=== PATIENT | female | born 1935 | race Caucasian/White ===

== ENCOUNTER 2023-08-03 15:49 | Inpatient (IN) ==
[2023-08-03] MEDS ORDERED: NS 0.9% 500 ml BAG 500 ML IV ONE (15:56)
[2023-08-03 17:55] LABS: ABS Eosinophils 0.1 10^3/uL (0.0-0.5); ABS Lymphocytes 1.5 10^3/uL (1.0-4.8); ABS Monocytes 0.8 10^3/uL (0.0-0.9); ABS Neutrophils 11.9 10^3/uL (1.5-7.6); ABS Nucleated RBC 0.01 10^3/ul; Eosinophil % 0.8 %; Hematocrit 39.3 % (35-45); Hemoglobin 13.2 g/dL (11.5-14.3); Lymphocyte % 10.4 %; Mean Corpuscular Hemoglobin 30.4 pg (27-33); Mean Corpuscular Hgb Conc 33.5 g/dL (31-36); Mean Corpuscular Volume 90.9 fL (80-97); Mean Platelet Volume 8.1 fL (7.5-11.2); Platelet Count 245 10^3/uL (150-450); Red Blood Count 4.33 10^6/uL (3.63-4.92); Red Cell Distribution Width 14.1 % (12-17); White Blood Count 14.4 10^3/uL (3.8-11.8)
[2023-08-03 18:02] LABS: High Sens Troponin Baseline 28 pg/mL (<15)
[2023-08-03 18:13] LABS: Albumin 4.2 g/dL (3.2-5.2); C Reactive Protein 101.96 mg/L (<8.01); Calcium 9.5 mg/dL (8.6-10.3); Creatinine, Serum 0.96 mg/dL (0.51-0.95); Globulin 4.3 g/dL (2-4); Phosphorus 2.6 mg/dL (2.5-5.0); Potassium 3.7 mmol/L (3.5-5.0); Total Bilirubin 1.1 mg/dL (0.2-1.0); Total Protein 8.5 g/dL (6.4-8.9); eGFR CKD-EPI 57.3 (>60)
[2023-08-03 18:53] LABS: High Sensitivity Troponin 1 Hr 32 pg/mL (<15)
[2023-08-03 19:25] LABS: Urine Appearance Cloudy; Urine Bilirubin Negative (Negative); Urine Blood 2+ (Negative); Urine Color Yellow; Urine Glucose Negative (Negative); Urine Ketones Trace (Negative); Urine Nitrite Negative (Negative); Urine Protein 2+(100 mg/dL) (Negative); Urine Specific Gravity 1.018 (1.002-1.030); Urine Urobilinogen Negative (Negative)
[2023-08-03] MEDS ORDERED: cefTRIAXone 1 gm/50 mL D5W 1 GM/50 ML BAG IV ONE (19:31)
[2023-08-03 19:32] LABS: Urine Bacteria 1+ (Absent); Urine Red Blood Cell 3+(>10/hpf) (Absent); Urine Squamous Epithelial Cell Present (Absent); Urine White Blood Cell 1+(6-10/hpf) (Absent)
[2023-08-03] MEDS ORDERED: Magnesium Hydroxide LIQ 30 ML UDC PO PRN (21:18)
[2023-08-03] MEDS: Carbidopa/Levodop 25/100 MG TAB PO SCH (22:45)
[2023-08-04] MEDS: DOXYcycline 100 MG in NS 0.9% 250 ml 250 ML IVPB SCH ×2 (00:33→13:11)
[2023-08-04 06:42] LABS: ABS Basophils 0.1 10^3/uL (0.0-0.1); ABS Eosinophils 0.2 10^3/uL (0.0-0.5); ABS Lymphocytes 1.7 10^3/uL (1.0-4.8); ABS Monocytes 0.8 10^3/uL (0.0-0.9); ABS Neutrophils 8.4 10^3/uL (1.5-7.6); ABS Nucleated RBC 0.01 10^3/ul; Eosinophil % 1.8 %; Hematocrit 35.9 % (35-45); Lymphocyte % 14.9 %; Mean Corpuscular Hemoglobin 30.4 pg (27-33); Mean Corpuscular Hgb Conc 33.6 g/dL (31-36); Mean Corpuscular Volume 90.6 fL (80-97); Mean Platelet Volume 7.8 fL (7.5-11.2); Nucleated Red Blood Cells % 0.1 %/100WBC (0.0-0.8); Platelet Count 183 10^3/uL (150-450); Red Blood Count 3.96 10^6/uL (3.63-4.92); Red Cell Distribution Width 13.6 % (12-17); White Blood Count 11.1 10^3/uL (3.8-11.8)
[2023-08-04 06:58] LABS: Calcium 8.5 mg/dL (8.6-10.3); Creatinine, Serum 0.81 mg/dL (0.51-0.95); Magnesium 1.8 mg/dL (1.9-2.7); Potassium 3.7 mmol/L (3.5-5.0); eGFR CKD-EPI 70.2 (>60)
[2023-08-04] MEDS ORDERED: Magnesium Sulfate 2 gm BAG 2 GM/50 ML BAG IVPB ONE (07:32)
[2023-08-04 07:33] LABS: TSH Ultra Thyroid Stim Horm 3.1 mcIU/mL (0.34-5.60)
[2023-08-04] MEDS: Carbidopa/Levodop 25/100 MG TAB PO SCH ×3 (10:43→21:56)
[2023-08-04] MEDS ORDERED: cefTRIAXone 1 gm/50 mL D5W 1 GM/50 ML BAG IV SCH (21:00)
[2023-08-05] MEDS: DOXYcycline 100 MG in NS 0.9% 250 ml 250 ML IVPB SCH ×2 (00:11→13:31)
[2023-08-05] MEDS: Carbidopa/Levodop 25/100 MG TAB PO SCH ×3 (10:27→17:05)
[2023-08-06] MEDS: DOXYcycline 100 MG in NS 0.9% 250 ml 250 ML IVPB SCH ×2 (00:36→12:32)
[2023-08-06] MEDS: Carbidopa/Levodop 25/100 MG TAB PO SCH ×3 (08:25→17:44)
[2023-08-06] MEDS ORDERED: Furosemide 20 mg/2 ml IV VIAL IV SLOW PU ONE (10:05)
[2023-08-07] MEDS: DOXYcycline 100 MG in NS 0.9% 250 ml 250 ML IVPB SCH ×2 (01:08→13:04)
[2023-08-07] MEDS: Carbidopa/Levodop 25/100 MG TAB PO SCH ×3 (10:47→16:35)
[2023-08-07 12:09] LABS: ABS Basophils 0.1 10^3/uL (0.0-0.1); ABS Eosinophils 0.2 10^3/uL (0.0-0.5); ABS Lymphocytes 1.2 10^3/uL (1.0-4.8); ABS Monocytes 0.5 10^3/uL (0.0-0.9); ABS Neutrophils 6.5 10^3/uL (1.5-7.6); Eosinophil % 2.2 %; Hematocrit 31.6 % (35-45); Hemoglobin 10.8 g/dL (11.5-14.3); Lymphocyte % 14.3 %; Mean Corpuscular Hemoglobin 31.1 pg (27-33); Mean Corpuscular Hgb Conc 34.3 g/dL (31-36); Mean Corpuscular Volume 90.7 fL (80-97); Mean Platelet Volume 7.9 fL (7.5-11.2); Nucleated Red Blood Cells % 0.1 %/100WBC (0.0-0.8); Platelet Count 218 10^3/uL (150-450); Red Blood Count 3.48 10^6/uL (3.63-4.92); Red Cell Distribution Width 14.1 % (12-17); White Blood Count 8.5 10^3/uL (3.8-11.8)
[2023-08-07 12:24] LABS: Calcium 8.7 mg/dL (8.6-10.3); Creatinine, Serum 0.83 mg/dL (0.51-0.95); Magnesium 1.8 mg/dL (1.9-2.7); Potassium 3.6 mmol/L (3.5-5.0); eGFR CKD-EPI 68.2 (>60)
[2023-08-07] MEDS: Potassium Chlor 20 meq TAB.ER PO SCH (16:34)
[2023-08-08] MEDS: DOXYcycline 100 MG in NS 0.9% 250 ml 250 ML IVPB SCH ×2 (00:47→12:36)
[2023-08-08] MEDS: Carbidopa/Levodop 25/100 MG TAB PO SCH ×3 (08:42→17:33)
[2023-08-08] MEDS: Potassium Chlor 20 meq TAB.ER PO SCH (08:45)
[2023-08-08 09:49] LABS: Creatinine, Serum 0.92 mg/dL (0.51-0.95); Magnesium 1.7 mg/dL (1.9-2.7); Potassium 3.9 mmol/L (3.5-5.0); eGFR CKD-EPI 60.3 (>60)
[2023-08-08] MEDS ORDERED: Carbidopa/Levodop 25/100 MG TAB ONE (12:33)
[2023-08-09 06:25] LABS: ABS Basophils 0.1 10^3/uL (0.0-0.1); ABS Eosinophils 0.3 10^3/uL (0.0-0.5); ABS Lymphocytes 1.9 10^3/uL (1.0-4.8); ABS Monocytes 0.7 10^3/uL (0.0-0.9); ABS Neutrophils 6.5 10^3/uL (1.5-7.6); ABS Nucleated RBC 0.01 10^3/ul; Eosinophil % 3.1 %; Hematocrit 34.7 % (35-45); Hemoglobin 11.7 g/dL (11.5-14.3); Lymphocyte % 20.1 %; Mean Corpuscular Hgb Conc 33.7 g/dL (31-36); Mean Corpuscular Volume 92.2 fL (80-97); Mean Platelet Volume 8.2 fL (7.5-11.2); Nucleated Red Blood Cells % 0.1 %/100WBC (0.0-0.8); Platelet Count 229 10^3/uL (150-450); Red Blood Count 3.76 10^6/uL (3.63-4.92); Red Cell Distribution Width 14.3 % (12-17); White Blood Count 9.4 10^3/uL (3.8-11.8)
[2023-08-09 06:36] LABS: Calcium 8.9 mg/dL (8.6-10.3); Creatinine, Serum 0.91 mg/dL (0.51-0.95); Magnesium 1.7 mg/dL (1.9-2.7); Phosphorus 3.1 mg/dL (2.5-5.0); eGFR CKD-EPI 61.1 (>60)
[2023-08-09] MEDS: Potassium Chlor 20 meq TAB.ER PO SCH (09:48)
[2023-08-09] MEDS: Carbidopa/Levodop 25/100 MG TAB PO SCH ×2 (09:48→11:47)
[2023-08-09 09:55] VITALS: BP 102/72
== END 2023-08-09 14:00 | DRG 56 ==
LOC: ED 15:49 → EDHOLD 15:49 → SUATTDRO 21:19 → EDHOLD 08-04 11:50 → MED 08-04 12:17 → SUATTDRO 08-05 09:00
PROVIDERS: ADMIT Internal Medicine; ATTEND Internal Medicine